=== PATIENT | female | born 1985 | race Caucasian/White ===

== ENCOUNTER 2017-01-01 16:05 | Emergency (ER) | payer OTHER ==
[~2017-01-01] VITALS: Ht 175.3 cm; Wt 165.1 kg
[~2017-01-01 16:05] MED LIST: Motrin PO; Percocet 5/325,Endoc PO
[2017-01-01 16:56] LABS: CHLORIDE 106 mEq/L (99-109); POTASSIUM 3.6 mEq/L (3.7-5.4); SODIUM 140 mEq/L (136-147)
[2017-01-01 16:58] LABS: GLUCOSE 100 mg/dL (70-99)
[2017-01-01 17:00] LABS: ANION GAP 11 MEQ/L (2-14)
[2017-01-01 17:02] LABS: GFR ESTIMATE (CALCULATED) > 59 mL/min/
[2017-01-01 17:03] LABS: UREA NITROGEN (BUN) 12 mg/dL (9-23)
[2017-01-01 17:10] LABS: QUANTITATIVE HCG < 4.0 MIU/ML
[2017-01-01] MEDS ORDERED: FLEXERIL5 MG PO (18:03)
[2017-01-01] MEDS ORDERED: MOTRIN600 MG PO (18:03)
[2017-01-01 18:11] VITALS: BP 129/83
== END 2017-01-01 18:21 | disposition home or self-care (01) ==
LOC: EME 16:05 → RME 16:05
PROVIDERS: Physician Assistant
DX: R07.89 Other chest pain (principal); M54.9 Dorsalgia, unspecified; I10 Essential (primary) hypertension
CPT/HCPCS: 71020; 80048; 84702; 93005; 99281; 99284; J0780; J1885; J7030

== ENCOUNTER 2017-10-25 13:37 | Emergency (ER) | payer OTHER ==
[~2017-10-25] VITALS: Ht 172.7 cm; Wt 181.2 kg
[~2017-10-25 13:37] MED LIST changes: +FLEXERIL5 MG PO; +MOTRIN600 MG PO
[2017-10-25 14:38] LABS: APPEARANCE CLOUDY ((CLEAR)); BILIRUBIN NEGATIVE; BLOOD NEGATIVE; COLOR YELLOW ((YELLOW)); GLUCOSE (STRIP) NEGATIVE; KETONES NEGATIVE; LEUKOCYTES NEGATIVE; NITRITE NEGATIVE; PROTEIN (STRIP) NEGATIVE; SPECIFIC GRAVITY 1.017 (1.000-1.030); UROBILINOGEN 0.2 MG/DL (0.2-1.0)
[2017-10-25 14:49] LABS: BACTERIA RARE /HPF; EPITHELIAL CELLS 1+ /HPF; MUCUS TRACE /LPF; RED BLOOD CELLS 0-5 /HPF (0-5); UCUL ADDED? NO; WHITE BLOOD CELLS 0-5 /HPF (0-5)
[2017-10-25] MEDS ORDERED: ROBAXIN750 MG PO (15:01)
[2017-10-25] MEDS ORDERED: PERCOCET 5/31 TABLET PO (15:01)
[2017-10-25 15:28] VITALS: BP 168/75
== END 2017-10-25 15:29 | disposition home or self-care (01) ==
LOC: EME 13:37
PROVIDERS: Physician Assistant
DX: M54.5 Low back pain (principal); R20.0 Anesthesia of skin; I10 Essential (primary) hypertension; E66.01 Morbid (severe) obesity due to excess calories; Z87.891 Personal history of nicotine dependence
CPT/HCPCS: 81003; 84703

== ENCOUNTER 2018-02-01 20:33 | Emergency (ER) | payer OTHER ==
[~2018-02-01] VITALS: Ht 172.7 cm; Wt 176.4 kg
[~2018-02-01 20:33] MED LIST changes: +PERCOCET 5/31 TABLET PO; +ROBAXIN750 MG PO
[2018-02-01 21:05] LABS: HEMATOCRIT 34.6 % (36.0-46.0); HEMOGLOBIN 10.7 G/DL (11.9-15.5); MCH 21.9 PG (29.0-34.0); MCHC 30.9 G/DL (30.0-36.0); MCV 70.8 FL (83-99); PLATELET COUNT 390 K/uL (156-360); RBC DIS.WIDTH-CV 18.4 % (11.8-14.6); RBC DIS.WIDTH-SD 45.7 % (39-53); RED BLOOD COUNT 4.89 M/uL (3.80-5.20); WHITE BLOOD COUNT 8.2 K/uL (4.1-10.2)
[2018-02-01 21:12] LABS: CHLORIDE 109 mEq/L (99-109); POTASSIUM 3.5 mEq/L (3.7-5.4); SODIUM 143 mEq/L (136-147)
[2018-02-01 21:14] LABS: GLUCOSE 98 mg/dL (70-99); TOTAL PROTEIN 7.5 g/dL (6.4-8.3)
[2018-02-01 21:16] LABS: TOTAL BILIRUBIN 1.2 mg/dL (0.0-1.0)
[2018-02-01 21:18] LABS: ALKALINE PHOSPHATASE 89 IU/L (3-129); CREATININE 0.7 mg/dL (0.6-1.3); GFR ESTIMATE (CALCULATED) > 59 mL/min/
[2018-02-01 21:19] LABS: UREA NITROGEN (BUN) 9 mg/dL (9-23)
[2018-02-01 21:20] LABS: AST (GOT) 16 IU/L (2-34)
[2018-02-01 21:21] LABS: ALT (GPT) 21 IU/L (3-49)
[2018-02-01 21:26] LABS: QUANTITATIVE HCG < 4.0 MIU/ML
[2018-02-01 21:50] LABS: LIPASE 10 U/L (1.0-51.0)
[2018-02-01 22:17] LABS: APPEARANCE SL.HAZY ((CLEAR)); BILIRUBIN NEGATIVE; BLOOD NEGATIVE; COLOR AMBER ((YELLOW)); GLUCOSE (STRIP) NEGATIVE; KETONES NEGATIVE; LEUKOCYTES SMALL; NITRITE NEGATIVE; PROTEIN (STRIP) 30; SPECIFIC GRAVITY 1.029 (1.000-1.030); UROBILINOGEN 0.2 MG/DL (0.2-1.0)
[2018-02-01 23:12] LABS: BACTERIA 2+ /HPF; EPITHELIAL CELLS 3+ /HPF; MUCUS 3+ /LPF
[2018-02-01 23:14] LABS: RED BLOOD CELLS 0-5 /HPF (0-5); UCUL ADDED? YES
[2018-02-02] MEDS ORDERED: ZOFRAN ODT4 MG PO (00:50)
[2018-02-02] MEDS ORDERED: KEFLEX500 MG PO (00:50)
[2018-02-02 00:57] VITALS: BP 141/79
== END 2018-02-02 01:00 | disposition home or self-care (01) ==
LOC: EME 20:33
DX: R11.2 Nausea with vomiting, unspecified (principal); R19.7 Diarrhea, unspecified; D64.9 Anemia, unspecified; I10 Essential (primary) hypertension; Z87.891 Personal history of nicotine dependence
CPT/HCPCS: 74177; 80053; 81003; 83690; 84702; 85027; 87086; 99281; 99285; J1885; J2405; J7030

== ENCOUNTER 2018-04-22 13:02 | Emergency (ER) | payer OTHER ==
[~2018-04-22] VITALS: Ht 172.7 cm; Wt 181.5 kg
[~2018-04-22 13:02] MED LIST changes: +KEFLEX500 MG PO; +ZOFRAN ODT4 MG PO
[2018-04-22 14:45] LABS: HEMATOCRIT 31.6 % (36.0-46.0); HEMOGLOBIN 9.5 G/DL (11.9-15.5); MCH 21.6 PG (29.0-34.0); MCHC 30.1 G/DL (30.0-36.0); PLATELET COUNT 413 K/uL (156-360); RBC DIS.WIDTH-CV 17.8 % (11.8-14.6); RED BLOOD COUNT 4.39 M/uL (3.80-5.20); WHITE BLOOD COUNT 7.5 K/uL (4.1-10.2)
[2018-04-22 14:47] LABS: CHLORIDE 109 mEq/L (99-109); POTASSIUM 4.4 mEq/L (3.7-5.4); SODIUM 142 mEq/L (136-147)
[2018-04-22 14:49] LABS: GLUCOSE 101 mg/dL (70-99)
[2018-04-22 14:50] LABS: PTT 31.4 SEC (25-37)
[2018-04-22 14:53] LABS: CREATININE 0.7 mg/dL (0.6-1.3); GFR ESTIMATE (CALCULATED) > 59 mL/min/
[2018-04-22 14:54] LABS: UREA NITROGEN (BUN) 13 mg/dL (9-23)
[2018-04-22 15:01] LABS: QUANTITATIVE HCG < 4.0 MIU/ML
[2018-04-22] MEDS ORDERED: NORCO 5/3251 TABLET PO (16:03)
[2018-04-22 16:20] VITALS: BP 119/78
== END 2018-04-22 16:21 | disposition home or self-care (01) ==
LOC: EME 13:02
PROVIDERS: Nurse Practitioner Family
DX: S20.01XA Contusion of right breast, initial encounter (principal); S93.401A Sprain of unspecified ligament of right ankle, initial encounter; V49.40XA Driver injured in collision with unspecified motor vehicles in traffic accident, initial encounter; Y92.410 Unspecified street and highway as the place of occurrence of the external cause; I10 Essential (primary) hypertension; F41.9 Anxiety disorder, unspecified
CPT/HCPCS: 71046; 73610; 76642; 80048; 84702; 85027; 85610; 85730; 99281; 99283